=== PATIENT | male | born 1955 | race Caucasian/White ===

== ENCOUNTER 2020-10-22 08:49 | Emergency (ER) | payer MEDICARE ==
[~2020-10-22 08:49] MED LIST: EPINEPHrine 1 MG/10 ML SYRINGE ONE; SODIUM BICARB 8.4% 50 MEQ/50 ML SYRINGE IV ONE; SODIUM CHLORIDE 0.9% 1000 ML IV SOLN ONE; SODIUM CHLORIDE 0.9% 500 ML IVPB ONE
--- NOTE | 2020-10-22 09:26 | Emergency Department Report ---
ED CPR HPI - General Stated Complaint: CARDIAC ARREST Time Seen by Provider: 10/22/20 09:17 Source: family, EMS Mode of arrival: Stretcher Limitations: Physical Limitation - History of Present Illness Initial Comments: Chief complaint: Cardiac arrest History obtained from EMS and over the phone. HPI: This is a 65-year-old male with a significant past medical history who presents in cardiac arrest. stated that he did not feel well this morning. He elected to go to the store. contact and service clerks supervisor saw Mr. Anne Mcgrath in front of the ice machine outside. He grabbed his chest and fell backwards. Patient did not have a pulse upon EMS arrival. Patient's initial rhythm PEA. Patient received several doses of epinephrine. He received dextrose, sodium bi carbonate, calcium. Patient's rhythm developed to asystole. Then returned to PEA. He briefly had a pulse. Patient was also intubated with ETT. Total time of ACLS provided per EMS 22 minutes. Patient also given dextrose MD Complaint: found unresponsive Place: other (In front of convenience store) Bystander CPR Performed: No Shock Advised: No Initial Findings in the Field: unresponsive ROSC in the Field: Yes (For brief period of time) Associated Symptoms: other (Patient grabbed chest before becoming unresponsive) Treatments Prior to Arrival: intubation, epinephrine mgs # (Several doses of epinephrine), sodium bicarbonate (1 dose of sodium bicarbonate), calcium (1 dose of calcium), glucose (1 dose of dextrose) - Related Data Previous Rx's Medication Instructions Recorded Last Taken Type Sulfamethoxazole/Trimethoprim 1 each PO BID 7 Days #14 tablet 12/12/19 Unknown Rx [Bactrim DS TAB] Allergies Allergy/AdvReac Type Severity Reaction Status Date / Time Penicillins Allergy Unknown Verified 12/12/19 14:20 ED Review of Systems ROS: Stated complaint: CARDIAC ARREST Other details as noted in HPI Comment: Unobtainable due to pts medical conditions (Unresponsive patient) ED Past Medical Hx - Past Medical History Previous Medical History?: No - Surgical History Past Surgical History?: Yes Additional Surgical History: left arm, brain surgery - Social History Smoking Status: Never Smoker Substance Use Type: None - Medications Home Medications: Home Medications Medication Instructions Recorded Confirmed Last Taken Type Sulfamethoxazole/Trimethoprim 1 each PO BID 7 Days #14 tablet 12/12/19 Unknown Rx [Bactrim DS TAB] ED Physical Exam - General Limitations: Language Barrier General appearance: alert, other (Lifeless no spontaneous movement eyes have open) - Head Head exam: Present: atraumatic, normocephalic - Eye Eye exam: Present: normal appearance, other (Fixed dilated pupils, dried corneas, no eyelid reflex) - ENT ENT exam: Present: other (pale dry mucosa ETT present) - Neck Neck exam: Present: normal inspection, other (no deformity or swelling) - Respiratory Respiratory exam: Present: other (Equal breath sounds with ventilation, no spontaneous respirations) - Cardiovascular Cardiovascular Exam: Present: other - GI/Abdominal GI/Abdominal exam: Present: soft, distended - Extremities Exam Extremities exam: Present: normal inspection, other (No deformity or significant edema of the extremities) - Neurological Exam Neurological exam: Present: other (Lifeless, no spontaneous movement) - Psychiatric Psychiatric exam: Present: other (Lifeless no spontaneous movement) - Skin Skin exam: Present: warm, dry, intact, normal color. Absent: rash ED Course - Reevaluation(s) Reevaluation #1: 10/22/20 09:26 I notified of patient's . ED Medical Decision Making - Medical Decision Making Upon arrival, CPR chest compressions ACLS algorithm continued. Patient received several doses of epinephrine, 1 dose of sodium bicarbonate, calcium gluconate. Additional 14 minutes of ACLS performed in the emergency department. I used ultrasound during resuscitation that did detect cardiac activity. Asystole then developed subsequently. Time of 906. Critical care attestation.: If time is entered above; I have spent that time in minutes in the direct care of this critically ill patient, excluding procedure time. ED Disposition Clinical Impression: Cardiac arrest Disposition: DC-20 Is pt being admited?: No Does the pt Need Aspirin: No Time of Disposition: 09:06
== END 2020-10-22 16:09 ==
LOC: ED 08:49
DX: I46.9 Cardiac arrest, cause unspecified (principal)
CPT/HCPCS: 92950; 99285; J0171; 82962; J7030; J7040